=== PATIENT | female | born 1950 | race Caucasian/White ===

== ENCOUNTER 2023-05-04 08:30 | Outpatient (CLI) | payer OTHER, SELFPAY | END 2023-05-04 08:31 | disposition home or self-care (01) | PROVIDERS: PCP Family Medicine; Visit Provider Family Medicine | DX: Z00.00 Encounter for general adult medical examination without abnormal findings (principal); E78.5 Hyperlipidemia, unspecified; I10 Essential (primary) hypertension; E03.9 Hypothyroidism, unspecified; C18.9 Malignant neoplasm of colon, unspecified; Z13.0 Encounter for screening for diseases of the blood and blood-forming organs and certain disorders involving the immune mechanism | CPT/HCPCS: 80048; 80061; 84443 ==

== ENCOUNTER 2023-05-05 12:43 | Outpatient (CLI) | payer OTHER, SELFPAY | END 2023-05-05 12:44 | disposition home or self-care (01) | LOC: NFLDREF 05-06 03:02 | PROVIDERS: PCP Family Medicine; Referring Provider Family Medicine; Visit Provider Family Medicine | DX: Z00.00 Encounter for general adult medical examination without abnormal findings (principal); D64.9 Anemia, unspecified; I10 Essential (primary) hypertension; E78.5 Hyperlipidemia, unspecified; E03.9 Hypothyroidism, unspecified; R82.90 Unspecified abnormal findings in urine | CPT/HCPCS: 87086 ==

== ENCOUNTER 2023-05-14 11:08 | Outpatient (CLI) | payer OTHER, SELFPAY ==
--- NOTE | 2023-05-14 11:30 | CRLHL7_ITS ---
For Patients: As a result of the Cures Act, medical imaging exams and procedure reports are released immediately into your electronic medical record. You may view this report before your referring provider. If you have questions, please contact your health care provider. BILATERAL SCREENING MAMMOGRAM WITH COMPUTER-AIDED DETECTION AND TOMOSYNTHESIS TECHNIQUE: CC and MLO views were obtained. These mammographic images have been obtained using full-field digital technique. These mammographic images were interpreted with the benefit of computer-aided detection. Breast Tomosynthesis was used in this interpretation. COMPARISON FILM: 11/11/21, 10/14/20, 08/29/18. FINDINGS: The breasts are heterogeneously dense, which may obscure small masses IMPRESSION: There is no radiographic evidence for malignancy. ASSESSMENT: BI-RADS Category 1: Negative RECOMMENDATION: Routine screening mammogram in 1 year. A lay language report of this examination will be provided to the patient. David Zepeda M.D. Diagnostic/Nuclear Medicine Radiologist [email or web address] MITA/Dictated by: David Zepeda MD @ 05/14/2023 11:46:00 AM MITA/Dictated by: David Zepeda MD @ 05/14/2023 11:46:00 AM (Electronically Signed)
== END 2023-05-14 11:09 | disposition home or self-care (01) ==
LOC: MAMMO 11:10
PROVIDERS: PCP Family Medicine; Visit Provider Family Medicine
DX: Z12.31 Encounter for screening mammogram for malignant neoplasm of breast (principal); R92.2 Inconclusive mammogram
CPT/HCPCS: 77063; 77067

== ENCOUNTER 2024-04-19 09:39 | Outpatient (CLI) | payer OTHER, SELFPAY | END 2024-04-19 09:40 | disposition home or self-care (01) | PROVIDERS: PCP Family Medicine; Visit Provider Family Medicine | DX: Z00.00 Encounter for general adult medical examination without abnormal findings (principal); I10 Essential (primary) hypertension; E78.5 Hyperlipidemia, unspecified; E03.9 Hypothyroidism, unspecified | CPT/HCPCS: 80048; 80061; 84443 ==

== ENCOUNTER 2024-05-19 13:08 | Outpatient (CLI) | payer OTHER, SELFPAY ==
--- NOTE | 2024-05-19 13:20 | CRLHL7_ITS ---
For Patients: As a result of the Century Cures Act, medical imaging exams and procedure reports are released immediately into your electronic medical record. You may view this report before your referring provider. If you have questions, please contact your health care provider. BILATERAL SCREENING MAMMOGRAM WITH COMPUTER-AIDED DETECTION AND TOMOSYNTHESIS TECHNIQUE: CC and MLO views were obtained. These mammographic images have been obtained using full-field digital technique. These mammographic images were interpreted with the benefit of computer-aided detection. Breast Tomosynthesis was used in this interpretation. COMPARISON FILM: 05/14/23, 11/11/21, 10/14/20. FINDINGS: The breasts are heterogeneously dense, which may obscure small masses IMPRESSION: There is no radiographic evidence for malignancy. ASSESSMENT: BI-RADS Category 1: Negative RECOMMENDATION: Routine screening mammogram in 1 year. A lay language report of this examination will be provided to the patient. Gerry Whalen M.D. Diagnostic Radiologist [email or web address] MITA/Dictated by: Gerry Whalen MD @ 05/19/2024 2:29:00 PM (Electronically Signed)
== END 2024-05-19 13:09 | disposition home or self-care (01) ==
LOC: MAMMO 13:08
PROVIDERS: PCP Family Medicine; Visit Provider Family Medicine
DX: Z12.31 Encounter for screening mammogram for malignant neoplasm of breast (principal); R92.2 Inconclusive mammogram
CPT/HCPCS: 77063; 77067

== ENCOUNTER 2024-12-31 13:17 | Inpatient (IN) | payer OTHER, SELFPAY ==
[2024-12-31] VITALS (8 sets, daily range): BP systolic 113–165; BP diastolic 73–104; PULSE 74–83; RESP 16–20; TEMP 36.6–37.1; O2SAT 97–99; BMI 21.8
--- NOTE | 2024-12-31 13:37 | ED.GENADULT ---
HPI - General Adult General Chief complaint: Dental/Oral/Mouth Injury/Pain Stated complaint: Abscess R side mouth Time Seen by Provider: 12/31/24 13:24 History of Present Illness HPI narrative: Patient is a 74-year-old woman who comes in today with significant swelling of the right side of her face. This seems to be centered around the maxillary sinus on the right. She has some dental caries as well but feels like most for symptoms are external to her oral cavity. She has had no fevers no chills no night sweats. She does smoke and has history of hypertension hyperlipidemia hypothyroidism. Her symptoms have been progressive for the last 48 hours. No difficulties with her airway. No changes in her sensorium. Related Data Previous Rx's ?Medication ?Instructions ?Recorded amlodipine 5 mg tablet 5 mg PO QDAY #90 tabs 04/19/24 atorvastatin 20 mg tablet 20 mg PO QHS #90 tabs 04/19/24 levothyroxine 50 mcg tablet 50 mcg PO QDAY #90 tabs 04/19/24 Allergies Allergy/AdvReac Type Severity Reaction Status Date / Time lisinopril Allergy Mild Cough Verified 12/31/24 13:28 meperidine Allergy Mild Nausea Verified 12/31/24 13:28 Review of Systems Status of ROS: Reports: 10 or more systems reviewed and unremarkable except as noted in History and below PFSH PFS Surgical History Status post total replacement of right hip ?Z96.641 - Presence of right artificial hip joint (ICD-10) Status post breast biopsy ?Z98.890 - Other specified postprocedural states (ICD-10) History of colostomy reversal ?Z98.890 - Other specified postprocedural states (ICD-10) Status post partial colectomy ?Z90.49 - Acquired absence of other specified parts of digestive tract (ICD-10) Social History What is your current living situation?: I presently have a place to live Problems where you live: no known problems In the past 12 months, utilities in danger of being shut off: no In past 12 months, lack of transportation kept you from medical appts, meetings, work, or getting things needed for daily living: no In the past 12 mos, have been you worried that your food would run out before you had money to buy more?: never true In the past 12 mos, the food you bought just didn't last and you didn't have money to buy more?: never true How often does anyone, including family, friends and others, physically hurt you: never How often does anyone, including family, friends and others, insult or talk down to you: never How often does anyone, including family, friends and others, threaten you with harm: never How often does anyone, including family, friends and others, scream or curse at you: never Exam Narrative: Exam Narrative: EXAM GENERAL: Patient appears comfortable with significant swelling of the right maxillary sinus region. EYES: No scleral icterus. ENT: Tympanic membranes and oropharynx normal. THYROID: no thyroid nodules or thyromegaly. LYMPH: No supraclavicular or cervical lymphadenopathy. SKIN: Visible skin seen during exam normal or with benign process only. EXT: No dependent lower extremity pedal edema. HEART: Regular rate and rhythm with no murmurs, rubs, or gallops. LUNGS: Clear to auscultation bilaterally with no crackles or wheezes. ABD: Soft, non tender, non distended. PSYCH: Good eye contact, speech is not pressured. Const: Vital Signs, click to edit/add: Vital Signs - 24 hr 12/31/24 13:22 Temperature 98.7 F Pulse Rate [Pulse Oximeter] 83 Respiratory Rate 16 Blood Pressure [Ri ght Upper Arm] 165/104 H Pulse Oximetry 97 Course Course ED Course: CT of the facial bones pending. Vital Signs Vital signs: Initial Vital Signs Temperature 98.7 F 12/31/24 13:22 Temperature Source Temporal Artery Scan 12/31/24 13:22 Pulse Rate 83 12/31/24 13:22 Respiratory Rate 16 12/31/24 13:22 Blood Pressure 165/104 H 12/31/24 13:22 Blood Pressure Mean 124 H 12/31/24 13:22 Pulse Oximetry 97 12/31/24 13:22 Vital Signs Temperature 98.7 F 12/31/24 13:22 Pulse Rate 83 12/31/24 13:22 Respiratory Rate 16 12/31/24 13:22 Blood Pressure 165/104 H 12/31/24 13:22 Pulse Oximetry 97 12/31/24 13:22 Temperature 98.7 F 12/31/24 13:22 Pulse Rate 83 12/31/24 13:22 Respiratory Rate 16 12/31/24 13:22 Blood Pressure 165/104 H 12/31/24 13:22 Pulse Oximetry 97 12/31/24 13:22 Medical Decision Making MDM Narrative Medical decision making narrative: Patient is a 74-year-old woman comes in today with severe right-sided facial swelling. I did do a CT of the facial bones and she does have facial cellulitis without abscess. She has no airway issues. She has had no fevers no chills no night sweats. Symptoms are present for the last 48 hours. I did visit with [facility] and they did recommend broad-spectrum antibiotics inpatient admission. Patient has a number of dental caries present. Lab work is pending I did review the case with hospitalist who except as admission. Lab Data Labs: Lab Results 12/31/24 Range/Units 13:45 WBC 8.84 (4.50-11.00) K/uL RBC 4.46 (4.00-5.20) m/uL Hgb 14.4 (12.0-16.0) gm/dL Hct 43.3 (33.0-51.0) % MCV 97 (80-100) fL MCH 32 (26-34) pg MCHC 33 (32-36) gm/dL RDW Coeff of Esthela 14.5 (11.5-15.5) % Plt Count 203 (140-440) K/uL Neut % (Auto) 72.0 (42.0-72.0) % Lymph % (Auto) 19.2 L (20-44) % [place] % (Auto) 8.3 (0.0-11.0) % Eos % (Auto) 0.1 (0.0-7.0) % Baso % (Auto) 0.3 (0.0-3.0) % Neut # (Auto) 6.36 (1.7-7.0) K/uL Lymph # (Auto) 1.70 (0.90-2.90) K/uL [place] # (Auto) 0.70 (0.00-0.90) K/UL Eos # (Auto) 0.01 (0.00-0.50) K/uL Baso # (Auto) 0.03 (0.00-0.30) K/uL Abs Immat Gran (auto) 0.01 (0.00-0.30) K/uL Imm/Tot Granulo (auto) 0.1 % Discharge Plan Discharge Clinical Impression: Cellulitis Patient Disposition: Admitted As Observation Condition: Stable Activity Level: Other Discharge Diet: Other Prescriptions: No Action amlodipine 5 mg tablet 5 mg PO QDAY Qty: 90 3RF atorvastatin 20 mg tablet 20 mg PO QHS Qty: 90 3RF levothyroxine 50 mcg tablet 50 mcg PO QDAY Qty: 90 3RF Follow Up/Referrals: Sal Grande MD [Primary Care Provider] - Stand Alone Forms: [employer] Info Instructions
[2024-12-31 14:27] LABS: Basophils Absolute Auto 0.03 K/uL (0.00-0.30); Basophils Percent Auto 0.3 % (0.0-3.0); Eosinophils Absolute Auto 0.01 K/uL (0.00-0.50); Eosinophils Percent Auto 0.1 % (0.0-7.0); Hematocrit 43.3 % (33.0-51.0); Hemoglobin* 14.4 gm/dL (12.0-16.0); Immature Granulocytes Abs Auto 0.01 K/uL (0.00-0.30); Immature Granulocytes Pct Auto 0.1 %; Lymphocytes Percent Auto 19.2 % (20-44); Mean Corpuscular HGB Conc 33 gm/dL (32-36); Mean Corpuscular Hemoglobin 32 pg (26-34); Mean Corpuscular Volume 97 fL (80-100); Monocytes Percent Auto 8.3 % (0.0-11.0); Neutrophils Absolute Auto 6.36 K/uL (1.7-7.0); Platelet Count* 203 K/uL (140-440); RDW Coefficient of Variation % 14.5 % (11.5-15.5); Red Blood Count 4.46 m/uL (4.00-5.20); White Blood Count* 8.84 K/uL (4.50-11.00)
[2024-12-31 14:28] LABS: Slide Review Reflex No
[2024-12-31 14:39] LABS: Albumin* 4.8 g/dL (3.3-5.0)
[2024-12-31 14:40] LABS: Chloride* 101 mmol/L (96-114); Potassium* 3.9 mmol/L (3.6-5.1); Sodium* 136 mmol/L (135-149)
[2024-12-31 14:42] LABS: Anion Gap 11 mEq/L (7-15); Aspartate Amino Transferase* 37 U/L (12-35); Bilirubin Total* 1.6 mg/dL (0.1-1.5); Blood Urea Nitrogen* 21 mg/dL (7-30); Carbon Dioxide* 24 mmol/L (20-32); Creatinine* 0.8 mg/dL (0.5-1.5); Est. Creatinine Clearance* 43.74; Estimated Glomerular Filt Rate 77 ml/min; Total Protein* 7.9 g/dL (6.0-8.3)
[2024-12-31 14:43] LABS: Alanine Aminotransferase* 22 U/L (4-35); Alkaline Phosphatase* 79 U/L (40-150); Calcium* 9.1 mg/dL (8.4-10.6); Glucose* 84 mg/dL (60-115)
[2024-12-31] MEDS: PIPERACILLIN/TAZOBACTAM 3.375 GM in 0.9 % SODIUM CHLORIDE Mini-bag 100 ML IVPB ×2 (14:52→20:35)
[2024-12-31 15:00] LABS: Procalcitonin* 0.06 ng/mL (<0.50)
--- NOTE | 2024-12-31 15:04 | PM.IMHP1 ---
Hospitalist- H&P: HPI History of Present Illness Date Seen: 12/31/24 Chief complaint: Abscess R side mouth Narrative: ADMISSION HISTORY AND PHYSICAL - HOSPITALIST Chief Complaint: Worsening right cheek swelling, recent dental extraction HPI: Demetra is a 74-year-old with a history of hypertension, hyperlipidemia, hypothyroidism and everyday smoker. [place] She noted about 3 weeks ago, during flossing, that a cap fell off one of her lower right molars. She said the remnant tooth base had a sharp point that was cutting on her tongue - she went up to [place] and had this tooth extracted. No issues during or after appointment. she said the area was tender and a little boggy but no real issues until she woke up two days prior to admission. She noted 48 hours ago that her right check was a little full and sore. she denies fever over the last few days. No chills, no rigors, no draining from the extraction base. no other tooth pain or issues. She tried swishing H2O2 but nothing really helped. Over the last 24 hours, the swelling is increasing - feels more firm and is rising up to just under right eye. She can swallow and eat fine. ER COURSE: Face CT, labs, Zosyn and Vanc started. CODE STATUS: FULL CODE EMERGENCY CONTACT PLAN: David Muñoz Rel To Pat I've updated the PFSH, medications and allergies in the Expanse tabs. INVESTIGATIONS: LABS/MICRO/ECG/IMAGING CBC is unremarkable. Total white count 8.8, neutrophil percentage 72. Hemoglobin 14. Chemistries unremarkable. Lactate normal. Mild bump in her AST and total bili - last LFTs were in 2020 in our old EMR; they were normal. procal neg crp is 1.6 CT face Inflammatory stranding and soft tissue swelling involving the subcutaneous tissues overlying the right hemimandible and extending cephalad into the right pre maxillary region. There is adjacent skin thickening. Findings are most compatible with cellulitis. No abscess. 1 blood culture, MRSA nasal swab pending REVIEW OF SYSTEMS: 12-point ROS completed with patient and negative unless otherwise stated in HPI or below. PHYSICAL EXAM: CONSTITUTIONAL: Conversive, good historian. A/O. Knows setting and context. GENERAL: Well-developed, in no respiratory distress. VITAL SIGNS: Hypertensive 165/104. Afebrile. Pulse 83. Respiratory rate 16. On room air satting 97%. 60 kilos. HEENT: edema/warmth noted from the right corner of her mouth up across her maxillary arch and down to her jaw line. no significant cervical lymphadenopathy. can open her mouth wide. poor dentition generally noted. CARDIAC: rhythm is regular. There is no S3 or rub. No harsh murmurs. Extremities show trace edema with symmetrical pulses. PULM: good air entry with no wheeze. NEURO: Speech is fluent. A brief neurologic exam is negative. SKIN: other than as above. PSYCHIATRIC: Euthymic. AD[facility]: FLOOR CARE DVT: will ambulate 6x a day GI: PO intake Time spent: Today I spent 75 minutes seeing the patient, discussing the patient with ER staff, reviewing Expanse and EPIC notes/diagnostics, discussing the care plan with our care time that includes social work, PT/OT, pharmacy, RT, correction and documenting my impressions and plan in the medical record. MEDICAL NECESSITY FOR HOSPITALIZATION Anticipated midnights in the hospital: 2 Admitting diagnosis: significant facial cellulitis from the right platysma to the right premaxillary region. Risk of morbidity and mortality: high Acuity is characterized as high and reflected in: advanced age, heavy smoker, poor dentition. need for broad spectrum IV antibiotics, lab monitoring, chronic disease management (HTN). This patient will require hospital services as outlined in the assessment and plan in order to stabilize and be safely discharged to a lower level of care. Because of the risk and acuity as described above, this patient cannot be managed at a lower level of care. LENGTH OF STAY: 2 IP ? Anticipated LOS>2 midnights due to acuity of clinical presentation requiring inpatient level of care [facility] Medical History (Updated 12/31/24 @ 16:34 by Alison Albert MD) Adenomatous polyp of colon ?D12.6 - Benign neoplasm of colon, unspecified (ICD-10) Fibrocystic breast ?N60.19 - Diffuse cystic mastopathy of unspecified breast (ICD-10) Colon cancer ?C18.9 - Malignant neoplasm of colon, unspecified (ICD-10) Degenerative joint disease of left hip ?M16.12 - Unilateral primary osteoarthritis, left hip (ICD-10) Surgical History Status post total replacement of right hip ?Z96.641 - Presence of right artificial hip joint (ICD-10) Status post breast biopsy ?Z98.890 - Other specified postprocedural states (ICD-10) History of colostomy reversal ?Z98.890 - Other specified postprocedural states (ICD-10) Status post partial colectomy ?Z90.49 - Acquired absence of other specified parts of digestive tract (ICD-10) Social History What is your current living situation?: I presently have a place to live Problems where you live: no known problems In the past 12 months, utilities in danger of being shut off: no In past 12 months, lack of transportation kept you from medical appts, meetings, work, or getting things needed for daily living: no In the past 12 mos, have been you worried that your food would run out before you had money to buy more?: never true In the past 12 mos, the food you bought just didn't last and you didn't have money to buy more?: never true Smoking Status: Current every day smoker How often do you have a drink containing alcohol: 4 or more times a week How many standard drinks containing alcohol do you have on a typical day: 1 or 2 AUDIT-C Alcohol total score: 4 Non-prescribed substance use: marijuana (any form) How often does anyone, including family, friends and others, physically hurt you: never How often does anyone, including family, friends and others, insult or talk down to you: never How often does anyone, including family, friends and others, threaten you with harm: never How often does anyone, including family, friends and others, scream or curse at you: never Meds Home Medications and Allergies Allergies Allergy/AdvReac Type Severity Reaction Status Date / Time lisinopril Allergy Mild Cough Verified 12/31/24 13:28 meperidine Allergy Mild Nausea Verified 12/31/24 13:28 Exam Const: Vital Signs, click to edit/add: Vital Signs - 24 hr 12/31/24 13:22 Temperature 98.7 F Pulse Rate [Pulse Oximeter] 83 Respiratory Rate 16 Blood Pressure [Ri ght Upper Arm] 165/104 H Pulse Oximetry 97 Hospitalist - H&P: Result Labs Labs: Short CBC 12/31/24 Range/Units 13:45 WBC 8.84 (4.50-11.00) K/uL Hgb 14.4 (12.0-16.0) gm/dL Hct 43.3 (33.0-51.0) % Plt Count 203 (140-440) K/uL BMP 12/31/24 13:45 Sodium 136 Potassium 3.9 Chloride 101 Carbon Dioxide 24 BUN 21 Creatinine 0.8 Glucose 84 Calcium 9.1 Liver Function 12/31/24 Range/Units 13:45 Total Bilirubin 1.6 H (0.1-1.5) mg/dL AST 37 H (12-35) U/L ALT 22 (4-35) U/L Alkaline Phosphatase 79 (40-150) U/L Albumin 4.8 (3.3-5.0) g/dL Assessment and Plan Assessment and plan (1) Facial cellulitis: Problem comment: -significant facial cellulitis from the right platysma to the right premaxillary region -IV zosyn and vanc; monitor labs, inflammatory markers, response -ENT available to follow as needed -no abscess formation noted at admission Status: Acute (2) Hyperbilirubinemia: Problem comment: -minimal elevation; daily drinker; will follow Status: Acute (3) Tobacco use: Problem comment: daily smoker denied nicotine replacement Status: Acute (4) Hypertension: Problem comment: -hypertensive on arrival; monitor -continue home meds Status: Acute (5) Hyperlipidemia: Problem comment: continue home meds Status: Acute (6) Hypothyroidism: Problem comment: continue home meds Status: Acute
[2024-12-31 15:45] LABS: C Reactive Protein* 1.6 mg/dL (0.5-1.0); Ethanol* < 0.01 % (0.01-0.03)
[2024-12-31] MEDS: VANCOMYCIN 1.25 GM/250 ML 1.25 GM/250 ML PIGGYBACK IVPB (16:03)
--- NOTE | 2024-12-31 19:58 | PC.NURSE ---
End of shift [id number]- Pt arrived from ED at 1520. Pt alert, oriented, cooperative. Up independently, tolerating RA and regular diet/fluids. R cheek noted to be edematous, no outlineable redness noted on face or cheek. Pt reported oral/cheek pain as 5/10 which she stated was 'tolerable'. Ice pack given at pt request. Family at bedside, pt appears to be resting comfortably in chair at end of shift with call light within reach.
[2024-12-31] MEDS: IBUPROFEN 600 MG TABLET PO (20:34)
[2024-12-31] MEDS: ATORVASTATIN CALCIUM 10 MG TABLET 20 MG PO (20:34)
[2024-12-31] MEDS: SODIUM CHLORIDE 0.9 % (FLUSH) 10 ML SYRINGE 5 ML IVF (20:35)
[2025-01-01 02:33] VITALS: BP 117/68; PULSE 57; RESP 16; TEMP 36.1; O2SAT 96
[2025-01-01] MEDS: PIPERACILLIN/TAZOBACTAM 3.375 GM in 0.9 % SODIUM CHLORIDE Mini-bag 100 ML IVPB ×4 (02:35→21:09)
[2025-01-01] MEDS: LEVOTHYROXINE 50 MCG TABLET PO (06:03)
[2025-01-01 06:37] LABS: Basophils Absolute Auto 0.05 K/uL (0.00-0.30); Eosinophils Absolute Auto 0.09 K/uL (0.00-0.50); Eosinophils Percent Auto 1.7 % (0.0-7.0); Hematocrit 39.2 % (33.0-51.0); Hemoglobin* 13.1 gm/dL (12.0-16.0); Lymphocytes Absolute Auto 1.57 K/uL (0.90-2.90); Lymphocytes Percent Auto 30.3 % (20-44); Mean Corpuscular HGB Conc 33 gm/dL (32-36); Mean Corpuscular Hemoglobin 33 pg (26-34); Mean Corpuscular Volume 98 fL (80-100); Monocytes Percent Auto 9.4 % (0.0-11.0); Neutrophils Absolute Auto 2.99 K/uL (1.7-7.0); Neutrophils Percent Auto 57.6 % (42.0-72.0); Platelet Count* 172 K/uL (140-440); RDW Coefficient of Variation % 14.4 % (11.5-15.5); Red Blood Count 4.01 m/uL (4.00-5.20); White Blood Count* 5.19 K/uL (4.50-11.00)
[2025-01-01 06:38] LABS: Albumin* 3.5 g/dL (3.3-5.0); Chloride* 105 mmol/L (96-114); Slide Review Reflex No; Sodium* 135 mmol/L (135-149)
[2025-01-01 06:39] LABS: Potassium* 4.4 mmol/L (3.6-5.1)
[2025-01-01 06:40] LABS: Blood Urea Nitrogen* 19 mg/dL (7-30); Creatinine* 0.8 mg/dL (0.5-1.5); Est. Creatinine Clearance* 43.74; Estimated Glomerular Filt Rate 77 ml/min
[2025-01-01 06:41] LABS: Alanine Aminotransferase* 15 U/L (4-35); Alkaline Phosphatase* 67 U/L (40-150); Anion Gap 5 mEq/L (7-15); Aspartate Amino Transferase* 25 U/L (12-35); Bilirubin Direct* 0.3 mg/dL (0.0-0.5); Bilirubin Total* 1.7 mg/dL (0.1-1.5); Carbon Dioxide* 25 mmol/L (20-32); Glucose* 91 mg/dL (60-115); Total Protein* 6.3 g/dL (6.0-8.3)
[2025-01-01 06:42] LABS: Calcium* 8.5 mg/dL (8.4-10.6); Phosphorus* 3.2 mg/dL (2.5-4.5)
[2025-01-01 06:44] LABS: C Reactive Protein* 2.1 mg/dL (0.5-1.0)
[2025-01-01 07:00] VITALS: BP 141/88; PULSE 58; RESP 14; TEMP 36.7; O2SAT 97
[2025-01-01] MEDS: AMLODIPINE 5 MG TABLET PO (08:34)
[2025-01-01] MEDS: SODIUM CHLORIDE 0.9 % (FLUSH) 10 ML SYRINGE 5 ML IVF ×2 (08:34→21:07)
[2025-01-01 11:16] VITALS: BP 125/84; PULSE 69; RESP 18; TEMP 36.7; O2SAT 97
--- NOTE | 2025-01-01 11:34 | PM.IMPN1 ---
Progress Note: A&P Assessment and plan (1) Facial cellulitis: Problem details: -significant facial cellulitis from the right platysma to the right premaxillary region -IV zosyn and vanc; monitor labs, inflammatory markers, response -ENT available to follow as needed -no abscess formation noted at admission - 01/01 I reviewed the films with our radiologist, Gerry Whalen. No abcess seen. MRSA swab is pending. Blood culture pending. Continue Zosyn and vanco. Status: Acute (2) Hyperbilirubinemia: Problem details: -minimal elevation; daily drinker; will follow - 01/01 stable, possibly Gilbert's syndrome Status: Acute (3) Tobacco use: Problem details: daily smoker denied nicotine replacement Status: Chronic (4) Hypertension: Problem details: -hypertensive on arrival; monitor -continue home meds Status: Chronic (5) Hyperlipidemia: Problem details: continue home meds Status: Chronic (6) Hypothyroidism: Problem details: continue home meds Status: Chronic Time Spent With Patient Total time spent: Today I spent 35 minutes seeing the patient, reviewing Expanse and EPIC notes/diagnostics/labs, reviewing CT with the radiologist, discussing the care plan with our care team that includes social work, PT/OT, pharmacy, RT, prison and documenting my impressions and plan in the medical record. Subjective Time Seen by Provider: 10:03 Date Seen: 01/01/25 Interval history: Demetra feels slightly better, but still notes a lot of painful swelling in her right face. She notes tenderness over her right upper teeth as well as tenderness on the right just under her jaw. She denies fever or chills overnight. She said that she normally sees [facility], but it had been 3 years and right across the road is [facility], which she thought was [facility]. So, she accidentally went there and had the work done thinking it was where she had all her dental work done in the past. She acknowledges that she still has a lot more dental work that needs to be done. Exam Narrative: Exam Narrative: General: No acute distress. Awake, alert, oriented x3. No pallor. No jaundice. Oropharynx: Clear. Mucous membranes moist. Poor dentition. No trismus. Able to talk without difficulty. No muffled voice or hoarseness. Edema appears unchanged from the picture in her chart from yesterday. No notable warmth today, no erythema. Tender over the right upper gum line near teeth 4 and 5. No purulence or swelling noted. Open space of tooth 30 is nontender and there is no purulence or drainage noted. Cardiovascular: Regular rate and rhythm. No murmurs, gallops, or rubs. Respiratory: Clear to auscultation bilaterally. No wheezes or crackles. Const: Vital Signs, click to edit/add: Vital Signs - 24 hr 12/31/24 13:22 12/31/24 16:32 12/31/24 16:43 Temperature 98.7 F 98.1 F Pulse Rate [Pulse Oximeter] 83 77 Respiratory Rate 16 20 Blood Pressure [Le ft Arm] 136/94 H Blood Pressure [Ri ght Upper Arm] 165/104 H Pulse Oximetry 97 99 99 Oxygen Delivery Me thod Room Air Room Air 12/31/24 19:28 12/31/24 20:34 12/31/24 21:37 Temperature 98.4 F 98.4 F 98.4 F Pulse Rate [Pulse Oximeter] 74 Respiratory Rate 16 Blood Pressure [Le ft Arm] 123/88 Blood Pressure [Ri ght Upper Arm] Pulse Oximetry 97 Oxygen Delivery Me thod Room Air 12/31/24 22:04 12/31/24 22:29 01/01/25 02:33 Temperature 98 F 97.0 F L Pulse Rate [Pulse Oximeter] 74 74 57 L Respiratory Rate 16 16 16 Blood Pressure [Le ft Arm] 113/73 117/68 Blood Pressure [Ri ght Upper Arm] Pulse Oximetry 98 96 Oxygen Delivery Me thod Room Air Room Air 01/01/25 07:00 01/01/25 07:00 01/01/25 11:16 Temperature 98.0 F 98.1 F Pulse Rate [Pulse Oximeter] 58 L 58 L 69 Respiratory Rate 14 14 18 Blood Pressure [Le ft Arm] 141/88 H 125/84 Blood Pressure [Ri ght Upper Arm] Pulse Oximetry 97 97 Oxygen Delivery Me thod Room Air Labs Labs: Laboratory Results - last 24 hr 12/31/24 12/31/24 12/31/24 13:45 14:42 15:07 WBC 8.84 RBC 4.46 Hgb 14.4 Hct 43.3 MCV 97 MCH 32 MCHC 33 RDW Coeff of Esthela 14.5 Plt Count 203 Neut % (Auto) 72.0 Lymph % (Auto) 19.2 L [place] % (Auto) 8.3 Eos % (Auto) 0.1 Baso % (Auto) 0.3 Neut # (Auto) 6.36 Lymph # (Auto) 1.70 [place] # (Auto) 0.70 Eos # (Auto) 0.01 Baso # (Auto) 0.03 Abs Immat Gran (auto) 0.01 Imm/Tot Granulo (auto) 0.1 Sodium 136 Potassium 3.9 Chloride 101 Carbon Dioxide 24 Anion Gap 11 BUN 21 Creatinine 0.8 Estimated Creat Clear 43.74 Estimated GFR 77 Glucose 84 Lactate 1.0 Calcium 9.1 Phosphorus Total Bilirubin 1.6 H Direct Bilirubin AST 37 H ALT 22 Alkaline Phosphatase 79 C-Reactive Protein 1.6 H Total Protein 7.9 Albumin 4.8 Procalcitonin 0.06 Ethyl Alcohol < 0.01 L Lab Acknowledgement Test Added 01/01/25 05:48 WBC 5.19 RBC 4.01 Hgb 13.1 Hct 39.2 MCV 98 MCH 33 MCHC 33 RDW Coeff of Esthela 14.4 Plt Count 172 Neut % (Auto) 57.6 Lymph % (Auto) 30.3 [place] % (Auto) 9.4 Eos % (Auto) 1.7 Baso % (Auto) 1.0 Neut # (Auto) 2.99 Lymph # (Auto) 1.57 [place] # (Auto) 0.50 Eos # (Auto) 0.09 Baso # (Auto) 0.05 Abs Immat Gran (auto) 0.00 Imm/Tot Granulo (auto) 0.0 Sodium 135 Potassium 4.4 Chloride 105 Carbon Dioxide 25 Anion Gap 5 L BUN 19 Creatinine 0.8 Estimated Creat Clear 43.74 Estimated GFR 77 Glucose 91 Lactate Calcium 8.5 Phosphorus 3.2 Total Bilirubin 1.7 H Direct Bilirubin 0.3 AST 25 ALT 15 Alkaline Phosphatase 67 C-Reactive Protein 2.1 H Total Protein 6.3 Albumin 3.5 Procalcitonin Ethyl Alcohol Lab Acknowledgement
[2025-01-01 15:00] VITALS: BP 131/86; PULSE 71; RESP 18; TEMP 36.7; O2SAT 98
[2025-01-01] MEDS: VANCOMYCIN 1.25 GM/250 ML 1.25 GM/250 ML PIGGYBACK IVPB (16:34)
[2025-01-01 19:00] VITALS: BP 107/79; PULSE 62; RESP 16; TEMP 36.8; O2SAT 94
--- NOTE | 2025-01-01 19:05 | PC.NURSE ---
End of shift-- Very pleasant and cooperative, alert and oriented patient. VSS and pt is afebrile. SPO2 maintained >90% on RA. She c/o some mild pressure in cheek today which she rated from 1-2 out of 10, but declined intervention for it. Right cheek remains swollen, however no redness is noted and swelling appears improved even through the day today. LS CTA. She denied nausea and ate a regular diet with no difficulty. Pt ambulating in room and hallway independently.
[2025-01-01] MEDS: ATORVASTATIN CALCIUM 10 MG TABLET 20 MG PO (21:07)
[2025-01-01] MEDS: IBUPROFEN 600 MG TABLET PO (21:26)
[2025-01-01 23:00] VITALS: BP 109/75; PULSE 54; RESP 18; TEMP 36.4; O2SAT 96
[2025-01-02 03:00] VITALS: BP 105/78; PULSE 56; RESP 18; TEMP 36.4; O2SAT 97
[2025-01-02] MEDS: PIPERACILLIN/TAZOBACTAM 3.375 GM in 0.9 % SODIUM CHLORIDE Mini-bag 100 ML IVPB ×2 (03:50→09:06)
--- NOTE | 2025-01-02 05:59 | PC.NURSE ---
Pt pleasant, alert, oriented and vitally stable. Pt states pain 2/10, requested prn Motrin before bed. Swelling on right side of face, no redness noted. Up independently. Pt in bed, appears to be resting call light within reach.
[2025-01-02] MEDS: LEVOTHYROXINE 50 MCG TABLET PO (06:14)
[2025-01-02 07:00] VITALS: BP 116/79; PULSE 66; RESP 20; TEMP 36.7; O2SAT 96
[2025-01-02] MEDS: AMLODIPINE 5 MG TABLET PO (09:06)
[2025-01-02] MEDS: SODIUM CHLORIDE 0.9 % (FLUSH) 10 ML SYRINGE 5 ML IVF (09:06)
--- NOTE | 2025-01-02 09:51 | PM.DS1 ---
DS: Providers Provider Time Seen by Provider: 09:10 Date Seen: 01/02/25 Date of admission: 12/31/24 16:08 Primary care physician: Sal Grande MD Admitting Clinician: Andrzej Hernandez MD Attending Physician on discharge: Arielle Iverson MD Date of Discharge: 01/02/25 DS: Diagnosis Discharge Diagnosis (1) Facial cellulitis: Status: Acute Problem details: -significant facial cellulitis from the right platysma to the right premaxillary region -IV zosyn and vanc; monitor labs, inflammatory markers, response -ENT available to follow as needed -no abscess formation noted at admission - 01/01 I reviewed the films with our radiologist, Gerry Whalen. No abcess seen. MRSA swab is pending. Blood culture pending. Continue Zosyn and vanco. - 01/02 MRSA swab is negative. Transition to augmentin (for concern that this is associated with an oral pathogen); CrCl >30, so do not need to renally dose augmentin. Discharge home. (2) Hyperbilirubinemia: Status: Acute Problem details: -minimal elevation; daily drinker; will follow - 01/01 stable, possibly Gilbert's syndrome (3) Tobacco use: Status: Chronic Problem details: daily smoker denied nicotine replacement (4) Hypertension: Status: Chronic Problem details: -hypertensive on arrival; monitor -continue home meds (5) Hyperlipidemia: Status: Chronic Problem details: continue home meds (6) Hypothyroidism: Status: Chronic Problem details: continue home meds DS: Summary Hospital Course Hospital Course: Per H&P: Demetra is a 74-year-old with a history of hypertension, hyperlipidemia, hypothyroidism and everyday smoker. [place] She noted about 3 weeks ago, during flossing, that a cap fell off one of her lower right molars. She said the remnant tooth base had a sharp point that was cutting on her tongue - she went up to [place], [place] and had this tooth extracted. No issues during or after appointment. she said the area was tender and a little boggy but no real issues until she woke up two days prior to admission. She noted 48 hours ago that her right check was a little full and sore. she denies fever over the last few days. No chills, no rigors, no draining from the extraction base. no other tooth pain or issues. She tried swishing H2O2 but nothing really helped. Over the last 24 hours, the swelling is increasing - feels more firm and is rising up to just under right eye. She can swallow and eat fine. Demetra improved on zosyn and vanco. MRSA swab is negative. Due to concern for oral pathogen, will transition to oral augmentin. I have advised her to contact her dentist to hopefully be evaluated prior to completion of antibiotics. I will also have her f/u with her PCP in case that is not possible. PCP - tbili was elevated, consider recheck as outpatient when she is feeling better. Time Spent with Patient Time attestation: Total time spent providing and/or coordinating discharge services: Exam Narrative: Exam Narrative: General: No acute distress. Awake, alert, oriented x3. No pallor. No jaundice. Oropharynx: Clear. Mucous membranes moist. Facial swelling is much improved, less tender. No trismus. Const: Vital Signs, click to edit/add: Vital Signs - 24 hr 01/01/25 11:16 01/01/25 15:00 01/01/25 15:00 Temperature 98.1 F 98.0 F Pulse Rate [Pulse Oximeter] 69 71 71 Respiratory Rate 18 18 18 Blood Pressure [Le ft Arm] 125/84 131/86 Pulse Oximetry 97 98 Oxygen Delivery Me thod Room Air 01/01/25 19:00 01/01/25 23:00 01/01/25 23:00 Temperature 98.2 F 97.6 F Pulse Rate [Pulse Oximeter] 62 54 L 54 L Respiratory Rate 16 18 18 Blood Pressure [Le ft Arm] 107/79 109/75 Pulse Oximetry 94 96 Oxygen Delivery Me thod Room Air Room Air 01/02/25 03:00 01/02/25 07:00 01/02/25 07:00 Temperature 97.6 F 98.0 F Pulse Rate [Pulse Oximeter] 56 L 66 Respiratory Rate 18 20 20 Blood Pressure [Le ft Arm] 105/78 116/79 Pulse Oximetry 97 96 Oxygen Delivery Me thod Room Air Room Air DS: Data Data Completed and Pending Completed studies during hospitalization: Ordering Physician: Arun Venegas M.D. Date of Service: 12/31/24 Procedure(s): CT facial bones w con Accession Number(s): [id number] cc: Sal Grande M.D.; Arun Venegas M.D.~ For Patients: As a result of the 21st Century Cures Act, medical imaging exams and procedure reports are released immediately into your electronic medical record. You may view this report before your referring provider. If you have questions, please contact your health care provider. Indication: Right-sided facial swelling. Technique: CT images of the facial bones following intravenous contrast. Comparison: None. Findings: Inflammatory stranding and soft tissue swelling involving the subcutaneous tissues overlying the right hemimandible and extending cephalad into the right pre maxillary region. There is adjacent skin thickening as well as mild thickening of the right platysma. No peripherally enhancing collection to suggest abscess. Globes are symmetric. No retrobulbar stranding. Minimal paranasal sinus mucosal thickening. Periapical lucency involving tooth number 4. The mastoid air cells are clear. Limited images through the brain are without pathologic intracranial enhancement. Impression: Inflammatory stranding and soft tissue swelling involving the subcutaneous tissues overlying the right hemimandible and extending cephalad into the right pre maxillary region. There is adjacent skin thickening. Findings are most compatible with cellulitis. No abscess. Please note that all CT scans at this facility use dose modulation, iterative reconstruction, and/or weight-based dosing when appropriate to reduce radiation dose to as low as reasonably achievable. Dictated by Satish Wild MD @ 12/31/2024 2:10:59 PM (Electronically Signed) Labs on day of discharge: Preliminary micro results at discharge 12/31/24 14:42 Blood Culture - Preliminary Blood NO GROWTH AFTER 24 HOURS Discharge Plan Discharge Disposition: Home, Self-Care Date of Admission: 12/31/24 16:08 Attending Provider on Discharge: Arielle Iverson Primary Care Provider: Sal Grande Condition: Stable Anticipated Discharge Date/Time: 01/02/25 10:08 Discharge Medications: New amoxicillin-pot clavulanate 875-125 mg Tablet 1 tab PO BIDWM 8 Days Qty: 16 0RF Continued amlodipine 5 mg tablet 5 mg PO QDAY Qty: 90 3RF atorvastatin 20 mg tablet 20 mg PO QHS Qty: 90 3RF levothyroxine 50 mcg tablet 50 mcg PO QDAY Qty: 90 3RF Discharge Orders: Discharge Order (Routine); Ordered 01/02/25 Ordered By: Arielle Iverson Activity Level: No Restrictions Discharge Diet: Regular Follow Up Appointments: Sal Grande MD [Primary Care Provider] - (1 week, LFT) Forms: [employer] Info Instructions
[2025-01-02] MEDS: AMOXICILLIN/CLAVULANATE 875 mg/125 mg TABLET PO (10:16)
== END 2025-01-02 11:14 | disposition home or self-care (01) | DRG 603 ==
LOC: ED 14:34 → MEDSURG 15:06
PROVIDERS: Admitting Provider Family Medicine; Emergency Provider Internal Medicine; PCP Family Medicine; Visit Provider Family Medicine
DX: L03.211 Cellulitis of face (principal); K08.89 Other specified disorders of teeth and supporting structures; F17.210 Nicotine dependence, cigarettes, uncomplicated; I10 Essential (primary) hypertension; E80.6 Other disorders of bilirubin metabolism; E80.7 Disorder of bilirubin metabolism, unspecified; F10.10 Alcohol abuse, uncomplicated; E03.9 Hypothyroidism, unspecified; E78.5 Hyperlipidemia, unspecified
CPT/HCPCS: 36415; 70487; 80053; 80069; 80076; 82077; 83605; 84145; 85025; 86140; 87040; 87081; 99283; 99285; A9270; J2543; J3372; Q9967

== ENCOUNTER 2025-07-10 09:39 | Outpatient (CLI) | payer OTHER, SELFPAY | END 2025-07-10 09:40 | disposition home or self-care (01) | PROVIDERS: PCP Family Medicine; Visit Provider Family Medicine | DX: E03.9 Hypothyroidism, unspecified (principal); I10 Essential (primary) hypertension; Z13.0 Encounter for screening for diseases of the blood and blood-forming organs and certain disorders involving the immune mechanism | CPT/HCPCS: 80048; 84439; 84443 ==

== ENCOUNTER 2025-08-29 08:19 | Outpatient (CLI) | payer OTHER, SELFPAY | END 2025-08-29 08:20 | disposition home or self-care (01) | LOC: NFLDREF 09-03 01:36 | PROVIDERS: PCP Family Medicine; Referring Provider Family Medicine; Visit Provider Family Medicine | DX: E78.00 Pure hypercholesterolemia, unspecified (principal) | CPT/HCPCS: 80061 ==